=== PATIENT | female | born 1990 | race Caucasian/White ===

== ENCOUNTER 2016-09-10 15:03 | Emergency (ER) | payer BC, OTHER ==
[~2016-09-10] VITALS: Ht 154.9 cm; Wt 64.0 kg
[2016-09-10 15:06] VITALS: TEMP 36.9; Ht 154.9 cm; Wt 64.0 kg
[2016-09-10] MEDS ORDERED: ZANTREX PO (15:14)
[2016-09-10] MEDS ORDERED: RANITIDINE HCL 150 MG TAB PO ONE (15:30)
--- NOTE | 2016-09-10 15:39 | EMERGENCY ROOM VISIT NOTE ---
History First contact with patient: 15:10 Chief Complaint: ALLERGIC REACTION Stated Complaint: ALLERGIC REACTION TO POSSIBLY DEIT PILL OR SALAD Nursing Triage Summary: pt here with red, hot and itchy skin x 30 min. pt states just ate lunch and prior to lunch took a new diet pill, has only taken so far taking zantrex diet pill History of Present Illness The patient is a 25 year old female who presents to the Emergency Room with complaints of a possible reaction to a diet pill. The patient reports that she has been taking Zantrex, and [id number] diet supplement for the past 3 days. The patient reports that approximately 15 minutes after taking the medication today, her skin broke out in red, itchy hives. She has not had this reaction previously. She reports that the rash began approximately 45 minutes ago, but has since subsided somewhat. She denies any difficulty breathing, difficulty swallowing, nausea, vomiting or facial swelling. The medication does contain niacin. Review of Systems A complete 10-point Review of Systems was discussed with the patient, with pertinent positives and negatives listed in the History of Present Illness. All remaining Review of Systems questions can be considered negative unless otherwise specified. Social History Smoking Status: Current Every Day Smoker Current/Historical Medications Scheduled [Zantrex], 2 TAB PO BIDM Allergies Coded Allergies: No Known Allergies (Unverified , 09/10/16) Physical Exam Vital Signs Date Time Temp Pulse Resp B/P Pulse Ox O2 Delivery O2 Flow Rate FiO2 09/10/16 15:40 70 16 108/76 98 09/10/16 15:06 36.9 70 16 116/58 100 Room Air Physical Exam VITALS: Vitals are noted on the nurse's note and reviewed by myself. Vital signs stable. GENERAL: This is a 25-year-old female, in no acute distress, nondiaphoretic, well-developed well-nourished. SKIN: There are diffuse erythematous papule/plaques over the bilateral arms, legs, chest and back. HEENT: No facial edema. PERRLA. EOMI. Nares patent. Mucous membranes moist. Neck is supple without nuchal rigidity. HEART: Regular rate and rhythm without murmurs gallops or rubs. LUNGS: Clear to auscultation bilaterally without wheezes, rales or rhonchi. ABDOMEN: Soft, nontender. NEURO: Patient was alert and oriented to person place and time. Medical Decision & Procedures Medications Administered Medications (Trade) Dose Ordered Sig/Kg Route Start Time Stop Time Status Last Admin Dose Admin Diphenhydramine HCl (Benadryl Cap) 25 mg NOW STAT PO 09/10/16 15:23 09/10/16 15:24 DC 09/10/16 15:33 25 MG Ranitidine HCl (zANTac TAB) 150 mg NOW ONCE PO 09/10/16 15:30 09/10/16 15:31 DC 09/10/16 15:33 150 MG Medical Decision Differential diagnosis includes allergic reaction, adverse drug reaction, anaphylaxis, among others. The patient was evaluated as above. The medication she took does include niacin. I am unsure if the patient is having an allergic reaction to one of the components of the medication, or flushing from the niacin. Either way, the patient does not have any signs of a severe allergic reaction or anaphylaxis. I do feel it is safe to treat her with [id number]-xgn-[id number] antihistamines. She was instructed to stop taking this medication. She was given one dose of Benadryl and Zantac here. The patient was instructed to return for any worsening symptoms. She verbalized understanding of my assessment and treatment plan and was discharged home in good condition. Impression Primary Impression: Adverse reaction to drug Departure Information Dispostion Home / Self-Care Condition GOOD Patient Instructions My [facility] Additional Instructions You have been treated in the Emergency Department for an Allergic Reaction. You have been treated and monitored in the Emergency Department appropriately. You should take Benadryl (diphenhydramine) 25-50 mg orally every 4-6 hours for the next 2-3 days. This medication is [id number] and you will NOT need a prescription to purchase this at your local pharmacy. You should continue taking the Benadryl until your symptoms resolve. You should take Zantac (ranitidine) 75 mg orally once daily for the next 2-3 days. This medication is [id number] and you will NOT need a prescription to purchase this at your local pharmacy. You should continue taking the Zantac until your symptoms have resolved. As with every Emergency Department visit, you should follow-up with your primary care provider in 2-3 days for reevaluation. Return to the Emergency Department if your current symptoms worsen despite treatment course outlined above, or if you develop any of the following symptoms : wheezing, tongue or face swelling, tightness in your throat, shortness of breath, or fainting. Problem Qualifiers Primary Impression: Adverse reaction to drug Encounter type: initial encounter Qualified Codes: T88.7XXA - Unspecified adverse effect of drug or medicament, initial encounter
[2016-09-10 15:40] VITALS: BP 108/76; PULSE 70; O2SAT 98
== END 2016-09-10 15:45 | disposition home or self-care (01) ==
LOC: C.EDB 15:05 → C.EDD 15:45
DX: T88.7XXA Unspecified adverse effect of drug or medicament, initial encounter (principal); X58.XXXA Exposure to other specified factors, initial encounter; F17.200 Nicotine dependence, unspecified, uncomplicated